=== PATIENT | male | born 1990 | race Caucasian/White ===

== ENCOUNTER 2019-06-09 04:12 | Emergency (ER) | payer OTHER ==
[~2019-06-09] VITALS: Ht 177.8 cm; Wt 77.1 kg
[2019-06-09] MEDS ORDERED: Motrin,Rufen800 MG PO (06:33)
[2019-06-09] MEDS ORDERED: KEFLEX500 M1 PO (06:33)
== END 2019-06-09 06:43 | disposition home or self-care (01) ==
LOC: ED 04:12
DX: S61.432A Puncture wound without foreign body of left hand, initial encounter (principal); W22.8XXA Striking against or struck by other objects, initial encounter; Y93.89 Activity, other specified; Y92.89 Other specified places as the place of occurrence of the external cause; Y99.0 Civilian activity done for income or pay